=== PATIENT | male | born 1980 | race Caucasian/White ===

== ENCOUNTER → 2022-08-19 | Outpatient (CLI) | payer OTHER | LOC: COL.RAD 12:45 | DX: R91.8 Other nonspecific abnormal finding of lung field (principal); M24.19 Other articular cartilage disorders, other specified site ==

== ENCOUNTER → 2023-01-09 | Outpatient (CLI) | payer OTHER | LOC: COL.RAD 12-29 12:30 | DX: M19.011 Primary osteoarthritis, right shoulder (principal); S46.821A Laceration of other muscles, fascia and tendons at shoulder and upper arm level, right arm, initial encounter; S46.111A Strain of muscle, fascia and tendon of long head of biceps, right arm, initial encounter; X58.XXXA Exposure to other specified factors, initial encounter ==

== ENCOUNTER → 2023-01-29 | Outpatient (CLI) | payer OTHER ==
[~2023-01-29] MED LIST: Triamcinolone 40 MG/ML 1 ML VIAL IJ SCH
== END ==
LOC: COL.RAD 07:43
DX: S23.429A Unspecified sprain of sternum, initial encounter (principal)
CPT/HCPCS: J3301

== ENCOUNTER → 2023-10-19 | Outpatient (CLI) | payer OTHER | LOC: COL.RAD 13:16 | DX: S23.429A Unspecified sprain of sternum, initial encounter (principal); X58.XXXA Exposure to other specified factors, initial encounter | CPT/HCPCS: J0665; J3301 ==